=== PATIENT | female | born 2000 | race Caucasian/White ===

== ENCOUNTER 2022-01-06 00:09 | Emergency (ER) | payer MEDICAID ==
[~2022-01-06] VITALS: Ht 162.6 cm; Wt 45.4 kg
[2022-01-06 00:15] VITALS: BP_SYST 128
--- NOTE | 2022-01-06 00:19 | NUR ---
PATIENT STATES SHE WAS DIAGNOSED WITH COVID ON 12/31 AND HAS BEEN VOMITING/DIARRHEA X 2 DAYS NOW.
[2022-01-06] MEDS ORDERED: ONDANSETRON HCL 4 MG/2 ML VIAL IVP ONE (00:30)
[2022-01-06] MEDS ORDERED: NACL 0.9% 1,000 ML IV ONE (00:30)
[2022-01-06] MEDS ORDERED: KETOROLAC TROMETHAMINE 30 MG VIAL IVP ONE (00:30)
--- NOTE | 2022-01-06 00:37 | NUR ---
PATIENT BROUGHT TO ROOM 7 FOR EVAL, REPORT GIVEN TO MELIZA MORENO.
--- NOTE | 2022-01-06 00:50 | NUR ---
Pt from home with c/o N/V for a couple of days and lower abd pain. Pt states she feel dehydrated and had a recent COVID positive at home test. VSS. Safety precautions in place and connected to monitor.
[2022-01-06 00:59] LABS: BASOPHILS # (AUTO) 0.1 K/uL (0.0-0.2); BASOPHILS % (AUTO) 2.4 % (0.0-2.0); HEMATOCRIT 39.1 % (36-48); HEMOGLOBIN 13.7 g/dL (12.0-16.0); LYMPHOCYTES % (AUTO) 20.4 % (20.5-51.5); MEAN CORPUSCULAR HEMOGLOBIN 32 pg (27-31); MEAN CORPUSCULAR HGB CONC 35 % (32-36); MEAN CORPUSCULAR VOLUME 90 fL (79.0-98.0); MONOCYTES # (AUTO) 0.3 K/uL (0.0-1.0); MONOCYTES % (AUTO) 5.5 % (1.7-9.3); NEUTROPHILS # (AUTO) 3.3 K/uL (1.8-7.7); NEUTROPHILS % (AUTO) 70.7 % (40.0-70.0); PLATELET COUNT (AUTO) 227 K/uL (130-430); RED BLOOD CELL COUNT(AUTO) 4.36 MIL/uL (4.2-6.2); RED CELL DISTRIBUTION WIDTH 12.6 % (9.0-15.0); WHITE BLOOD COUNT (AUTO) 4.7 K/uL (4.8-10.8)
[2022-01-06 01:07] LABS: CALCIUM 9.1 mg/dL (8.4-11.0); CREATININE 0.73 mg/dL (0.55-1.30); POTASSIUM 4.5 mmol/L (3.5-5.1)
[2022-01-06 01:13] LABS: ALBUMIN 3.8 g/dL (3.4-4.8); TOTAL BILIRUBIN 0.7 mg/dL (0.0-1.0)
[2022-01-06] MEDS ORDERED: ACETAMINOPHEN 500 MG TABLET PO ONE (01:15)
--- NOTE | 2022-01-06 01:15 | NUR ---
Dr. Rosenberg at bedside with patient for evalaution.
[2022-01-06 01:38] LABS: BILIRUBIN,URINE 1+ (NEGATIVE); BLOOD, URINE NEGATIVE (NEGATIVE); CLARITY/URINE CLEAR (CLEAR); COLOR,URINE YELLOW (YELLOW); GLUCOSE,URINE NEGATIVE (NEGATIVE); KETONES,URINE 3+ (NEGATIVE); LEUKOCYTE ESTERASE ,URINE NEGATIVE (NEGATIVE); NITRITE, URINE NEGATIVE (NEGATIVE); PROTEIN URINE TRACE (NEGATIVE)
[2022-01-06] MEDS ORDERED: ACETAMINOPHEN 650 MG/20.3 ML UDC PO ONE (01:45)
--- NOTE | 2022-01-06 01:51 | NUR ---
URINE SAMPLE AND COVID SAMPLE COLLECTED AND SENT TO LAB.
[2022-01-06 02:39] LABS: RBC,URINE 0-3 /HPF (0-3); WBC,URINE 0-3 /HPF (0-3)
[2022-01-06 02:40] LABS: BACTERIA,URINE None Seen /HPF (None Seen)
[2022-01-06 02:41] LABS: MUCUS,URINE None Seen /LPF (None Seen)
[2022-01-06] MEDS ORDERED: ONDA-8 TL (02:53)
[2022-01-06 03:35] VITALS: BP_SYST 130
--- NOTE | 2022-01-06 03:35 | NUR ---
Patient given written and verbal discharge instructions and verbalizes understanding. ER Dr. Rosenberg discussed with patient the results and treatment provided. Patient in stable condition. ID arm band removed. IV catheter removed intact and dressing applied, no active bleeding. Rx of ZOFRAN given. Patient educated on pain management and to follow up with PMD. Pain Scale 0. Opportunity for questions provided and answered. Medication side effect fact sheet provided.
== END 2022-01-06 03:35 | disposition home or self-care (01) ==
LOC: SED 00:09
DX: O98.511 Other viral diseases complicating pregnancy, first trimester (principal); O26.891 Other specified pregnancy related conditions, first trimester; Z3A.01 Less than 8 weeks gestation of pregnancy; Z79.899 Other long term (current) drug therapy; Z20.822 Contact with and (suspected) exposure to COVID-19
CPT/HCPCS: 99284; 96374; 76801; 96361; 87426; 80053; 81000; 84702; 85025; 86886; 86900; 86901; 36415; 76817; 81025; J2405; J7030